=== PATIENT | female | born 1940 | race Caucasian/White ===

== ENCOUNTER 2016-07-05 06:21 | Emergency (ER) | payer MEDICARE, OTHER ==
[2008-04-25 22:14] VITALS: BP 112/69
[~2016-07-05] VITALS: Ht 157.5 cm; Wt 59.1 kg
[~2016-07-05 06:21] MED LIST: ALPRAZOLAM1 MG PO; ARIMIDEX; NORCO PO; REGLAN 10MG10 MG/TAB PO; XANAX1 MG PO
[2016-07-05 06:24] VITALS: TEMP 96.8
[2016-07-05] MEDS ORDERED: INDERAL 20MG20 MG PO (06:35)
[2016-07-05] MEDS ORDERED: ULTRAM 50MG TAB50 MG PO (06:38)
[2016-07-05 07:41] VITALS: BP 142/78; PULSE 82
== END 2016-07-05 07:48 | disposition home or self-care (01) ==
LOC: COL.ER 06:21
DX: J06.9 Acute upper respiratory infection, unspecified (principal)
CPT/HCPCS: J1885

== ENCOUNTER → 2017-05-16 | Outpatient (CLI) | payer MEDICARE, OTHER ==
[~2017-05-16] MED LIST changes: +INDERAL 20MG20 MG PO; +ULTRAM 50MG TAB50 MG PO
== END ==
LOC: COL.VAS 08:30
DX: I65.23 Occlusion and stenosis of bilateral carotid arteries (principal)

== ENCOUNTER → 2017-05-23 | Outpatient (CLI) | payer MEDICARE, OTHER | LOC: COL.RAD 07:52 | DX: I65.21 Occlusion and stenosis of right carotid artery (principal) | CPT/HCPCS: Q9967 ==

== ENCOUNTER 2017-06-20 13:01 | Outpatient (RCR) | payer MEDICARE, OTHER | END 2017-09-18 08:03 | disposition home or self-care (01) | LOC: WSPT 13:01 | DX: I97.2 Postmastectomy lymphedema syndrome (principal); M19.049 Primary osteoarthritis, unspecified hand; Z90.13 Acquired absence of bilateral breasts and nipples; Z85.3 Personal history of malignant neoplasm of breast | CPT/HCPCS: G8987-GP; G8988-GP; G8989-GP ==

== ENCOUNTER → 2018-01-24 | Outpatient (CLI) | payer MEDICARE, OTHER ==
[2008-04-25 22:14] VITALS: BP 112/69
[~2018-01-24] VITALS: Ht 157.5 cm; Wt 60.9 kg
[2018-01-24] VITALS (13 sets, daily range): BP systolic 142–186; BP diastolic 71–94; PULSE 51–68
[~2018-01-24] MED LIST changes: +ATIVAN2 MG PO; +LEXAPRO20 MG PO; +ROXICODONE 55 MG/TAB PO; +TYLENOL 325MG325 MG PO
[2018-01-24 12:26] LABS: INR 0.9 (0.8-3.0)
== END ==
LOC: COL.RAD 11:48
PROVIDERS: Radiology Diagnostic Radiology
DX: K76.89 Other specified diseases of liver (principal)
CPT/HCPCS: J2250; J3010

== ENCOUNTER 2018-02-07 05:49 | Day surgery (SDC) | payer MEDICARE, OTHER ==
[2008-04-25 22:14] VITALS: BP 112/69
[~2018-02-07] VITALS: Ht 157.5 cm; Wt 61.9 kg
[2018-02-07 06:13] VITALS: BP 148/67; PULSE 47; TEMP 97.4
[2018-02-07] MEDS ORDERED: ROXICODONE 55 MG/TAB PO ×2 (06:26→08:38)
[2018-02-07] MEDS ORDERED: MOTRIN 600600 MG/TAB PO ×3 (08:34→08:38)
[2018-02-07 08:35] VITALS: BP 158/71; PULSE 57; TEMP 97.5
[2018-02-07] MEDS ORDERED: NORCO 325 MG-51 TAB PO (08:35)
[2018-02-07 08:50] VITALS: BP 124/67; PULSE 49
[2018-02-07 09:05] VITALS: BP 118/57; PULSE 51
== END 2018-02-07 09:56 | disposition home or self-care (01) ==
LOC: SDCO 05:49
DX: C50.919 Malignant neoplasm of unspecified site of unspecified female breast (principal); C78.7 Secondary malignant neoplasm of liver and intrahepatic bile duct; I10 Essential (primary) hypertension; M19.90 Unspecified osteoarthritis, unspecified site; Z90.49 Acquired absence of other specified parts of digestive tract; Z90.13 Acquired absence of bilateral breasts and nipples; Z88.1 Allergy status to other antibiotic agents
CPT/HCPCS: C1788; J0690; J1644; J2250; J2405; J2704; J3010; J7120

== ENCOUNTER 2018-03-02 09:24 | Emergency (ER) | payer MEDICARE, OTHER ==
[2008-04-25 22:14] VITALS: BP 112/69
[~2018-03-02] VITALS: Ht 157.5 cm; Wt 61.8 kg
[~2018-03-02 09:24] MED LIST changes: +MOTRIN 600600 MG/TAB PO; +NORCO 325 MG-51 TAB PO
[2018-03-02 09:28] VITALS: TEMP 98.4
[2018-03-02] MEDS ORDERED: ADVIL200 MG PO (09:54)
[2018-03-02 10:33] LABS: HEMOGLOBIN 11.6 g/dl (12.5-16.0); MEAN CELL VOLUME 90 fl (80.0-100.0); MEAN CORPUSCULAR HEMOGLOBIN 29 pg (27.0-31.0); MEAN CORPUSCULAR HGB CONC 33 g/dl (33.0-37.0); MEAN PLATELET VOLUME 10.4 fl (7.4-10.4); PLATELET COUNT 131 K/mm3 (130-400); RED BLOOD COUNT 3.95 M/mm3 (4.10-5.30); REDCELL DISTRIBUTION WIDTH-CV 13.2 % (11.5-14.5)
[2018-03-02 10:37] LABS: HEMATOCRIT 35.4 % (37.0-47.0)
[2018-03-02 10:47] LABS: BILIRUBIN,TOTAL 0.5 mg/dL (0.0-1.0); C-REACTIVE PROTEIN 8.5 mg/dL (0.0-0.9); CALCIUM 9.8 mg/dL (8.4-10.2); CREATININE, serum 0.59 mg/dL (0.52-1.25); POTASSIUM 3.7 mmol/L (3.4-5.0)
[2018-03-02 11:28] LABS: BAND 4 % (0-10); HYPOCHROMIA 1+; LYMPHOCYTE 10 % (20.0-51.0); NEUTROPHILS 86 % (42.0-75.2); PLATELET ESTIMATE DECREASED (NORMAL)
[2018-03-02] MEDS ORDERED: BACTRIM DS 8001 TAB PO ×3 (12:52→12:58)
[2018-03-02] MEDS ORDERED: CEPHALEXIN500 M1 PO ×3 (12:52→12:58)
[2018-03-02 12:54] VITALS: BP 127/85; PULSE 102
== END 2018-03-02 13:05 | disposition home or self-care (01) ==
LOC: COL.ER 09:24
PROVIDERS: Nurse Practitioner
DX: L03.114 Cellulitis of left upper limb (principal); I89.0 Lymphedema, not elsewhere classified; Z85.3 Personal history of malignant neoplasm of breast; Z90.89 Acquired absence of other organs; Z88.1 Allergy status to other antibiotic agents

== ENCOUNTER 2018-05-01 09:45 | Outpatient (RCR) | payer MEDICARE, OTHER ==
[~2018-05-01 09:45] MED LIST changes: +ADVIL200 MG PO; +BACTRIM DS 8001 TAB PO; +CEPHALEXIN500 M1 PO
== END 2018-05-12 | disposition home or self-care (01) ==
LOC: MKS.ESL.PT
DX: I89.0 Lymphedema, not elsewhere classified (principal); Z85.3 Personal history of malignant neoplasm of breast; Z90.13 Acquired absence of bilateral breasts and nipples; Z78.0 Asymptomatic menopausal state; Z92.21 Personal history of antineoplastic chemotherapy; Z79.891 Long term (current) use of opiate analgesic; Z79.899 Other long term (current) drug therapy
CPT/HCPCS: G8990-GP; G8991-GP

== ENCOUNTER 2018-07-29 16:00 | Outpatient (RCR) | payer MEDICARE, OTHER | END 2018-08-13 | disposition home or self-care (01) | LOC: MKS.ESL.PT | DX: I97.2 Postmastectomy lymphedema syndrome (principal); C78.7 Secondary malignant neoplasm of liver and intrahepatic bile duct; Z90.13 Acquired absence of bilateral breasts and nipples; Z92.3 Personal history of irradiation; Z92.21 Personal history of antineoplastic chemotherapy ==

== ENCOUNTER 2018-11-20 15:00 | Outpatient (RCR) | payer MEDICARE, OTHER | END 2018-11-28 | LOC: MKS.ESL.PT | DX: M25.562 Pain in left knee (principal) ==

== ENCOUNTER 2018-12-11 14:42 | Outpatient (RCR) | payer MEDICARE, OTHER | END 2019-03-11 | LOC: MKS.ESL.PT | DX: I89.0 Lymphedema, not elsewhere classified (principal) ==

== ENCOUNTER 2019-03-14 15:45 | Outpatient (RCR) | payer MEDICARE, OTHER | END 2019-06-10 | disposition still patient (30) | LOC: MKS.ESL.PT | DX: C50.412 Malignant neoplasm of upper-outer quadrant of left female breast (principal); I89.0 Lymphedema, not elsewhere classified ==

== ENCOUNTER → 2019-03-28 | Outpatient (CLI) | payer MEDICARE, OTHER | LOC: COL.RAD 08:51 | DX: C78.7 Secondary malignant neoplasm of liver and intrahepatic bile duct (principal); C50.412 Malignant neoplasm of upper-outer quadrant of left female breast; M89.9 Disorder of bone, unspecified; K83.8 Other specified diseases of biliary tract | CPT/HCPCS: Q9967 ==

== ENCOUNTER 2019-07-30 08:46 | Outpatient (RCR) | payer MEDICARE, OTHER ==
[2019-08-30] MEDS ORDERED: OXY IR5 MG PO (15:38)
[2019-08-30] MEDS ORDERED: PIQRAY1 EACH PO (19:42)
[2019-08-30] MEDS ORDERED: VIIBRYD20 MG PO (19:43)
[2019-08-31] MEDS ORDERED: ROXICODONE15 MG PO (06:08)
[2019-09-04] MEDS ORDERED: LIPITOR 40MG TA40 MG PO (10:52)
[2019-09-04] MEDS ORDERED: NORVASC 10MG10 MG PO (10:52)
[2019-09-04] MEDS ORDERED: PRINIVIL40 MG PO (10:52)
[2019-09-04] MEDS ORDERED: LOPRESSOR 225 MG/TAB PO (10:52)
[2019-09-04] MEDS ORDERED: ZOLOFT 25MG25 MG PO (10:53)
== END 2019-10-28 | disposition home or self-care (01) ==
LOC: MKS.ESL.PT
DX: M25.511 Pain in right shoulder (principal); M25.512 Pain in left shoulder

== ENCOUNTER 2019-08-30 13:26 | Inpatient (IN) | payer MEDICARE, OTHER ==
[2019-08-30] VITALS (205 sets, daily range): BP systolic 137; BP diastolic 78; PULSE 87; TEMP 99.3; O2SAT 71–100
[~2019-08-30] VITALS: Ht 157.5 cm; Wt 59.7 kg
[2019-08-30 13:47] LABS: BASO % 0.2 % (0.0-2.0); GRAN # 12.4 (1.4-6.5); GRAN % 82.6 % (42.2-75.2); HEMATOCRIT 47.9 % (37.0-47.0); HEMOGLOBIN 15.8 g/dl (12.5-16.0); LYMPH # 1.5 (1.2-3.4); LYMPH % 10.1 % (20.0-51.0); MEAN CELL VOLUME 88 fl (80.0-100.0); MEAN CORPUSCULAR HEMOGLOBIN 29 pg (27.0-31.0); MEAN CORPUSCULAR HGB CONC 33 g/dl (33.0-37.0); MEAN PLATELET VOLUME 9.4 fl (7.4-10.4); MONO % 6.7 % (1.7-9.3); PLATELET COUNT 265 K/mm3 (130-400); RED BLOOD COUNT 5.45 M/mm3 (4.10-5.30); REDCELL DISTRIBUTION WIDTH-CV 13.8 % (11.5-14.5)
[2019-08-30 13:57] LABS: ALBUMIN 5.1 gm/dL (3.5-5.0); BILIRUBIN,TOTAL 1.3 mg/dL (0.0-1.0); C-REACTIVE PROTEIN 0.7 mg/dL (0.0-0.9); CALCIUM 9.9 mg/dL (8.4-10.2); CREATININE, serum 1.07 (0.52-1.25); POTASSIUM 3.3 mmol/L (3.4-5.0); TOTAL PROTEIN 8.7 gm/dL (6.4-8.2)
[2019-08-30 14:25] LABS: COLLECTION METHOD CLEAN CATCH
[2019-08-30 14:34] LABS: MUCOUS Present /lpf; PH 6 (5-8); SQUAMOUS EPITHELIAL None Seen /hpf; URINE APPEARANCE Clear; URINE BACTERIA None Seen /hpf; URINE BILIRUBIN Negative (NEGATIVE); URINE BLOOD 1+ (NEGATIVE); URINE COLOR Yellow; URINE GLUCOSE 3+ (NEGATIVE); URINE KETONE Trace (NEGATIVE); URINE LEUKOCYTE ESTERASE Negative (NEGATIVE); URINE NITRATE Negative (NEGATIVE); URINE PROTEIN(semi-quant) 2+ (NEGATIVE); URINE UROBILINOGEN Negative (NEGATIVE)
[2019-08-30 14:46] LABS: TRICYCLIC ANTIDEPRESS URINE NEGATIVE
[2019-08-30] MEDS ORDERED: OXY IR5 MG PO (15:38)
[2019-08-30] MEDS ORDERED: PIQRAY1 EACH PO (19:42)
[2019-08-30] MEDS ORDERED: VIIBRYD20 MG PO (19:43)
--- NOTE | 2019-08-30 20:00 | NUR ---
Patient arrived via stretcher; patient alert and talking to staff, however speech is mostly non-sensical. Difficult to follow patient's train of thought. Patient will ask quesions which are not appropriate for the situation and go off on tangents. However, patient is able to follow most basic commands. Able to correctly tell this nurse the date and current location. Neuro checks within normal limits.
[2019-08-31] VITALS (783 sets, daily range): BP systolic 111–175; BP diastolic 75–96; PULSE 89–114; TEMP 97.6–99.2; O2SAT 60–100
--- NOTE | 2019-08-31 03:13 | NUR ---
Patient continues to be pleasantly confused. Has attempted to get up from bed multiple times. When asked why she is getting up patient unable to give a reason. Able to follow basic commands and can be redirected easily. Speech is still mostly jumbled. Able to state yes or no answers clearly but longer phrases are mostly unintelligible. Will continue to monitor.
--- NOTE | 2019-08-31 05:12 | NUR ---
Patient had episode of emesis. Assisted head of bed to 45 degrees. Zofran administere; reported stomach feeling "better" after medication. Will continue to monitor.
[2019-08-31] MEDS ORDERED: ROXICODONE15 MG PO (06:08)
[2019-08-31 06:20] LABS: HEMATOCRIT 43.4 % (37.0-47.0); HEMOGLOBIN 14.5 g/dl (12.5-16.0); MEAN CELL VOLUME 87 fl (80.0-100.0); MEAN CORPUSCULAR HEMOGLOBIN 29 pg (27.0-31.0); MEAN CORPUSCULAR HGB CONC 33 g/dl (33.0-37.0); MEAN PLATELET VOLUME 9.5 fl (7.4-10.4); PLATELET COUNT 237 K/mm3 (130-400); RED BLOOD COUNT 4.97 M/mm3 (4.10-5.30)
[2019-08-31 06:35] LABS: ALBUMIN 4.4 gm/dL (3.5-5.0); BILIRUBIN,TOTAL 1.4 mg/dL (0.0-1.0); CALCIUM 9.3 mg/dL (8.4-10.2); CHOLESTEROL RISK RATIO 3.6; CREATININE, serum 0.92 (0.52-1.25); POTASSIUM 3.5 mmol/L (3.4-5.0); TOTAL PROTEIN 7.3 gm/dL (6.4-8.2)
--- NOTE | 2019-08-31 07:15 | NUR ---
Bedside shift report received from Ana SETH. PT in bed resting, awake and listening to us during report but unable to comprehend any of the words she is saying, aksed orientation questions and pt unable to answer any of them coherently, speech is garbled. Bed alarm on, will continue to monitor.
[2019-08-31 07:31] LABS: BAND 3 % (0-10); LYMPHOCYTE 12 % (20.0-51.0); NEUTROPHILS 76 % (42.0-75.2); PLATELET ESTIMATE NORMAL (NORMAL)
--- NOTE | 2019-08-31 08:16 | NUR ---
Assessment hcarted by student nurse. Pt has LUE edema at +2, LUE is also warm. Pt has set off bed alarm twice already today, able to redirect back to bed easily but pt is very fast and moves often. Resting in bed now in chair position with alarm on. IVF to R a/c at 75 ml/hr. Cardene gtt to R Portacath at 25 ml/hr. Will continue to monitor.
--- NOTE | 2019-08-31 10:07 | NUR ---
Dr. Olivares here to see pt at this time, wants to trial off cardene gtt to see how patient does. Son Joaquin, called from [place] and gave update on patient status. Pt remains in bed, alarms on, will continue to monitor.
--- NOTE | 2019-08-31 14:43 | NUR ---
pt arrived to unit around 1430. no skin issues noted. pt able to follow all instructions but not always able to make needs known. clearly answers yes/no questions appropriately but loses train of thought/ mumbles when asked open ended questions. PERRLA. 4+ PITTING EDEMA NOTED TO LT ARM. denies pain but winces occasionally. SCDs applied. head librarian to swollen arm 3/[address] hand 4/5. face flushed.
--- NOTE | 2019-08-31 14:54 | NUR ---
TEMP 99.2. WARM BLANKETS CURRENTLY ON. MILD ANXIETY WITH FACIAL FLUSHING AND ALMOST-TEARS NOTED
--- NOTE | 2019-08-31 15:14 | NUR ---
pt transfered to medical floor via wheelchair with all of pt belongings and chemo cart. Report given to medical nurse who is resuming care. PRN nausea and anxiety medication given prior to transport, medical nurse was made aware. pt put into bed with alarms on. medical nurse to resume care.
--- NOTE | 2019-08-31 18:07 | NUR ---
PT REPORTED FEELING "NOT GOOD" IN HER STOMACH. HAD NOT EATEN ANY LUNCH. WAS REFUSING DINNER. BG >200 TO 160S WITHOUT INSULIN GIVEN. PRN ZOFRAN ADMIN. PT WAS ABLE TO EAT BANANA. ADAMANT TO TRY MORE FOOD BUT TRAY REMAINING AT BEDSIDE
--- NOTE | 2019-08-31 20:15 | NUR ---
Pt. laying in bed at this time. Pt. is confused, assessment complete. INT to rt. ac patent. Port to rt. chest patent. If asked the pt. will answer "yes/no" questions appropriately. But other blanc has word salad. Pt. does not appear to be in pain. Call light within reach, bed alarm on.
--- NOTE | 2019-08-31 22:33 | NUR ---
Pt.'s heart rate elevated per tele. SARAH Salazar notified. EKG ordered, showed sinus tach. Will continue to monitor.
[2019-09-01 03:36] VITALS: BP 154/96; PULSE 113; TEMP 99.4
[2019-09-01 07:19] LABS: HEMOGLOBIN 14.1 g/dl (12.5-16.0); MEAN CELL VOLUME 91 fl (80.0-100.0); MEAN CORPUSCULAR HEMOGLOBIN 30 pg (27.0-31.0); MEAN CORPUSCULAR HGB CONC 33 g/dl (33.0-37.0); MEAN PLATELET VOLUME 10.1 fl (7.4-10.4); PLATELET COUNT 243 K/mm3 (130-400); RED BLOOD COUNT 4.75 M/mm3 (4.10-5.30); REDCELL DISTRIBUTION WIDTH-CV 14.3 % (11.5-14.5)
[2019-09-01 07:43] LABS: CALCIUM 9.2 mg/dL (8.4-10.2); CREATININE, serum 1.11 (0.52-1.25); MAGNESIUM 2.5 mg/dL (1.6-2.3); POTASSIUM 3.5 mmol/L (3.4-5.0)
--- NOTE | 2019-09-01 08:36 | NUR ---
Spoke with Dr Alva's office this morning. PT recieved faslodex as n infusion on August 07. This drug has a half life of 40 days and is excreted in the stool. Double gloves should be used when handling stool. Gown and gloves for incontinence cleanup. Piqray is a antineoplastic that is not on the [facility] list and should be cleared from her system by now. Dr Alva's office reports that pt has recieved no other drugs from them nore recently and they do not believe that she is being seen at [facility].
--- NOTE | 2019-09-01 09:00 | NUR ---
Received call from MRI to take patient down for testing. Did inform patient of this and she agreed. During conversation, patient would speak in Azeri and in Ecuadorean mixed during conversation, has to be reminded to speak Ecuadorean as staff can not understand her. She is aware that this has been happening and states that shes unsure why this is happening. There was a lumbar puncture ordered, did call son for consent and he declined for testing as he feels there is no indication for the test to be done. Provider has been notified of this.
[2019-09-01 09:23] LABS: BAND 3 % (0-10); LYMPHOCYTE 17 % (20.0-51.0); NEUTROPHILS 71 % (42.0-75.2)
[2019-09-01 09:24] LABS: PLATELET ESTIMATE NORMAL (NORMAL)
--- NOTE | 2019-09-01 11:41 | NUR ---
Oil Fire Specialist contacted patient's son Nadir (ph#[phone]) as patient has been disoriented and not able to answer questions. Per Nadir, patient lives alone in [place] and sees Dr. Rogers for primary care. Patient also sees Dr. Alva, Oncologist and a Psychologist named Shila at ph#[phone]. Patient obtains medications from [facility] pharmacy. Nadir advised patient was "100%" independent with ADLS prior to being admitted to the hospital. Nadir reports he speaks with patient about three times a day and for the last couple of years she has been lucid. Nadir reports patient has been driving and shopping independently. Nadir states patient will likely want to return home upon discharge. Patient does not have DPOA-HC in EMR and Nadir confirms patient has not had this completed. SW to continue to follow to ensure safe discharge.
[2019-09-01 16:46] VITALS: BP 158/82; PULSE 95; TEMP 98.8
--- NOTE | 2019-09-01 18:45 | NUR ---
Pt report received from Rekha SETH at bedside. Pt is A&O but slips in out out of speaking citizen of [place] and has to be reminded to speak iranian. Pt has call light at her side and is compliant with using it prior to geting up out of bed per report. Pt is able to make her wants/needs known and presents with no s/s of distress noted. Pt requests beverage which this engineering technical writer provided and places on her bedside table within reach. Pt port a cath remains coverwed with clear dressing that is clean dry and intact. Will continue to monitor.
--- NOTE | 2019-09-01 18:54 | NUR ---
Patient has become more mentally clear throughout the day. She feels less foggy. All afternoon patient has spoke clear czech without having any Maltese into the conversation. All conversations have been appropriate. She is alert and oriented x4. Dr. Payton spoke with Nadir, patients son who has now decided that he would like for the patient to have the LP done. She does recall Dr. Ladd talking about the LP earlier in the morning and she stated this was not something she wanted to do. Dr. Payton did request that I still received verbal consent from the son just in case she were to have altered mental status again. This was complete but son understood that she would be able to refuse if she chose to do so. Did administer some prn acetaminophen per patients request for some right sided pain. Call light and personal items are within reach.
[2019-09-01 20:41] VITALS: BP 194/80; PULSE 92; TEMP 99.5
--- NOTE | 2019-09-01 23:32 | NUR ---
Pt complains of inability to sleep and restlessness. Pt has PRN Ativan PO 0.5mg - 1mg. Pt educated on order for ativan and that this may help settle her down. Pt requests PRN dose of 1 tablet (o.5 mg) which was given per JUL. Will continue to monitor.
[2019-09-01 23:56] VITALS: BP 180/93; PULSE 88; TEMP 98.9
[2019-09-02] VITALS (8 sets, daily range): BP systolic 147–196; BP diastolic 67–104; PULSE 92–99; TEMP 98–99.2
--- NOTE | 2019-09-02 00:30 | NUR ---
This rewriter notes on VS verification that Pt has elevated BP. This rewriter re-assessed Pt and noted BP of 181/91 supine. Pt denies chest pain, pressure, palpitations, changes to respiratory status or palpitations. Will continue to monitor.
--- NOTE | 2019-09-02 01:53 | NUR ---
Pt reported to this telegraphic typewriter operator chief at about 0130 that she was having difficulty obtaining a breath and "felt like (she) was going to ". This telegraphic typewriter operator chief obtained a set of VS with BP of 147/67 Pulse of 94 SpO2 of 96% on RA Temp of 98.8 and Respirations of 22. This telegraphic typewriter operator chief called Sharif SETH in Telemetry who reported that Pt is and has been in NSR with no arrthymia or other issues noted. Marie BEAUCHAMP notified who came and assessed Pt and provided new orders for labs, xrays, UA, and designated a new allergy of Hydralazine. Lab and X-ray notified of new orders. Pt is A&Ox4 and continues to slip in and out of speaking Kazakh but returns to Thai when told that this telegraphic typewriter operator chief cannot understand Kazakh. Pt currently reported that she is very gassy and feels like that may be part of the issue. During Assessment Pt reported tenderness to her left upper abdominal quadrant. Call light within reach. Will continue to monitor. COMPLETIONS ENGINEER's notified of new orders for UA with Providine, toilet hat and collection cup placed in room.
--- NOTE | 2019-09-02 02:41 | NUR ---
Pt sitting in bed with HOB elevated to about 60 degrees. Pt reports that she is feeling better ant this time. VS wnl for client with no s/s of distress noted. Call light is within reach. Will continue to monitor.
[2019-09-02 03:35] LABS: HEMATOCRIT 43.7 % (37.0-47.0); HEMOGLOBIN 14.5 g/dl (12.5-16.0); MEAN CELL VOLUME 90 fl (80.0-100.0); MEAN CORPUSCULAR HEMOGLOBIN 30 pg (27.0-31.0); MEAN CORPUSCULAR HGB CONC 33 g/dl (33.0-37.0); PLATELET COUNT 232 K/mm3 (130-400); RED BLOOD COUNT 4.86 M/mm3 (4.10-5.30)
[2019-09-02 03:46] LABS: CALCIUM 9.1 mg/dL (8.4-10.2); MAGNESIUM 2.5 mg/dL (1.6-2.3); POTASSIUM 3.3 mmol/L (3.4-5.0)
[2019-09-02 03:47] LABS: EOSINOPHIL 1 % (0-4); LYMPHOCYTE 8 % (20.0-51.0); NEUTROPHILS 78 % (42.0-75.2); PLATELET ESTIMATE NORMAL (NORMAL)
--- NOTE | 2019-09-02 04:13 | NUR ---
When this feature writer provided Pt her first dose of effervescent PO potassium Pt stated that she felt that we were going to be euthanizing her and asked when her last shot was going to be. Pt education on POC based upon this feature writer's chart review that the POC was that once she was stable and recovered from her current health issue that she was going to be going to rehab for therapy to get her strength back so she could then return home and continue living her life as she was prior to this hospitalization. Pt expressed reassurance and is currently resting in bed with no complaints or issues. Will continue to monitor.
--- NOTE | 2019-09-02 05:48 | NUR ---
Pt has remained awake and in bed since first dose of effervescent K+ was provided at 0400. Pt has had no further complaints of trouble breathing and has been quietly resting in bed without s/s of distress noted. Call light remains within reach. Will continue to monitor.
[2019-09-02 06:41] LABS: COLLECTION METHOD CLEAN CATCH
[2019-09-02 06:59] LABS: MUCOUS Present /lpf; PH 5 (5-8); SQUAMOUS EPITHELIAL 0-2 /hpf; URINE APPEARANCE Cloudy; URINE BACTERIA Moderate /hpf; URINE BILIRUBIN Negative (NEGATIVE); URINE BLOOD 1+ (NEGATIVE); URINE COLOR Yellow; URINE GLUCOSE 2+ (NEGATIVE); URINE KETONE Trace (NEGATIVE); URINE LEUKOCYTE ESTERASE 3+ (NEGATIVE); URINE NITRATE Negative (NEGATIVE); URINE PROTEIN(semi-quant) 1+ (NEGATIVE); URINE UROBILINOGEN Negative (NEGATIVE)
--- NOTE | 2019-09-02 07:01 | NUR ---
Pt report given to Ellie SETH
--- NOTE | 2019-09-02 08:48 | NUR ---
Pt laying in bed upon assessment, she is A/O x4, but also unable to assess if has confusion as she will often times start speaking in Mongolian and unable to assess relevance. Pt does report some diarrhea this am, as well as nausea. Ate a banana for breakfast. She reports pain to RUQ. L arm restrictions in place. Pt has no other needs at this time. Call light within reach. Bed alarm in place.
--- NOTE | 2019-09-02 14:17 | NUR ---
Accounting Bookkeeper followed up with patient today as she is more oriented and able to answer questions. SW followed up on post acute rehab placement options. Patient agreeable to have referrals sent to [facility], [facility], [facility], and [facility]. SW contacted each facility and faxed referrals. MARY spoke with Malissa at [facility] who advised they cannot accept referral. SW provided this update to patient. SW spoke with patient's son, Nadir to provide update on referrals. SW advised Nadir that if patient discharges to [facility], patient would need someone to transport her. Nadir reports either a neighbor of friend should be able to take her. SW provided update to Hospitalist. SW to continue to follow.
--- NOTE | 2019-09-02 18:39 | NUR ---
Pt had uneventful day. She rested well, remained A/O x4, occasionally starts speaking Chadian. Pt asking why people are talking about her, but denies hallucinations, states she does not see people in her room. Occasional SEQUEIRA, PRN Tylenol administered. Pt resting in bed at this time. Call light within reach, bed alarm in place.
--- NOTE | 2019-09-02 20:00 | NUR ---
At time of assessment, patient is awake in bed talking to her son, Nadir. She seems a little anxious and inquires about going home tomorrow. Assessment is complete. She complains of pain in left arm and says lymphedema has gotten worse. Tylenol administered for pain. Will continue to monitor.
--- NOTE | 2019-09-03 00:07 | NUR ---
Patient's BP at 2341 is 194/104. CAROLIN Salazar notified. Lopressor 5mg/5ml administered once. BP retaken 5 minutes later and it is 208/108. Marie is notified again and orders another 5mg Lopressor now.
[2019-09-03 04:21] VITALS: BP 152/83; PULSE 72; TEMP 98.1
--- NOTE | 2019-09-03 05:54 | NUR ---
Patient had very high BP's tonight. CAROLIN Salazar was notified of this and Lopressor 5 mg x 4, Lopressor 25 mg PO x 1, Norvasc 5 mg x 1, and clonidine 0.1 mg x 1 administered per doctor's orders before blood pressure finally trended down to 150's/80's. Patient remained asymptomatic throughout this event and has been sleeping peacefully afterwards. Will continue to monitor.
[2019-09-03 06:52] LABS: BASO % 0.1 % (0.0-2.0); EOS % 0.1 % (0-4.0); GRAN # 11.6 (1.4-6.5); HEMATOCRIT 42.2 % (37.0-47.0); HEMOGLOBIN 13.8 g/dl (12.5-16.0); LYMPH # 2.1 (1.2-3.4); LYMPH % 13.8 % (20.0-51.0); MEAN CELL VOLUME 89 fl (80.0-100.0); MEAN CORPUSCULAR HEMOGLOBIN 29 pg (27.0-31.0); MEAN CORPUSCULAR HGB CONC 33 g/dl (33.0-37.0); MEAN PLATELET VOLUME 10.3 fl (7.4-10.4); MONO # 1.4 (0.1-0.6); MONO % 9.1 % (1.7-9.3); PLATELET COUNT 239 K/mm3 (130-400); RED BLOOD COUNT 4.73 M/mm3 (4.10-5.30); REDCELL DISTRIBUTION WIDTH-CV 13.7 % (11.5-14.5)
[2019-09-03 07:03] LABS: CALCIUM 9.1 mg/dL (8.4-10.2); CREATININE, serum 0.73 (0.52-1.25); POTASSIUM 3.4 mmol/L (3.4-5.0)
[2019-09-03 07:16] VITALS: BP 141/85; PULSE 76; TEMP 97.6
--- NOTE | 2019-09-03 09:35 | NUR ---
Patient is awake and alert in bed, did eat a small amount of breakfast, she states that her appetite is slowly returing. She asked if the doctors keep people over three days because she is ready to go home. She does verbalize that she is upset with her sons as she feels they are not concerned about her. The son did call and reported to me that his mom is extremely agitated. I had spoken with the patient right before the call from the son and she was not agitated at that time. I did speak with her after speaking with the son and she was not agitated at that time, just stating she is eager to return home, there was no indication of leaving without seeing the doctor or leaving before the doctor states it is ok for discharge. Will check in and speak with patient again during neuro checks. Call light and personal items are within reach.
--- NOTE | 2019-09-03 11:07 | NUR ---
First visit from the country printer. No needs right now.
[2019-09-03 11:46] VITALS: BP 108/76; PULSE 75; TEMP 98.4
--- NOTE | 2019-09-03 16:24 | NUR ---
Lodging Manager spoke with patient to follow up on discharge plan. Patient reports she wants to now go home with Home Health. MARY provided this update to Hospitalist who is in agreeance. Patient selected [facility]. MARY faxed referral and will follow up. MARY contacted patient's son and left a message.
[2019-09-03 16:38] VITALS: BP 136/80; PULSE 89; TEMP 97.9
--- NOTE | 2019-09-03 16:57 | NUR ---
Patient notified staff of concern regarding swelling in the left arm. She typically has swelling due to lymphadema but she states it is worse than usual. Hand does appear to have more swelling than this morning. She does wear a compression sleeve while at home but does not have one with her. She did state that beatrice bandages are ineffective. Was provided with pillows to elevate, she was comfortable with that. Did offer APAP as she was having some aching to that arm.
[2019-09-03 19:10] VITALS: BP 138/88; PULSE 94; TEMP 97.6
--- NOTE | 2019-09-03 20:30 | NUR ---
Initial shift assessment done- denies pain,, alert/oriented at this time, steady on feet- VSS, left arm edema{elevated on pillow},, hopes to go home tomorrow
[2019-09-03 23:01] VITALS: BP 151/86; PULSE 82; TEMP 98.1
--- NOTE | 2019-09-03 23:21 | NUR ---
States she cant sleep and she feels anxious- will give Ativan as ordered, VSChana, B/P 151/86
[2019-09-04 03:15] VITALS: BP 133/90; PULSE 92; TEMP 98.4
[2019-09-04 07:18] VITALS: BP 148/83; PULSE 93; TEMP 98.4
--- NOTE | 2019-09-04 08:00 | NUR ---
Patient is awake and alert in bed. Is asking about when she can go home, I did tell her the provider had to round first but assured her that yesterday he stated she could go home. Did assess her left arm, she states she feels it has improved and had does appear smaller. She states she will take care of her compression sleeve when she gets home. She is denying pain, does state she is a little tired as it is "hard to sleep while in the hospital." No other needs verbalized. Call light and personal items are within reach.
[2019-09-04] MEDS ORDERED: PRINIVIL40 MG PO (10:52)
[2019-09-04] MEDS ORDERED: LOPRESSOR 225 MG/TAB PO (10:52)
[2019-09-04] MEDS ORDERED: LIPITOR 40MG TA40 MG PO (10:52)
[2019-09-04] MEDS ORDERED: NORVASC 10MG10 MG PO (10:52)
[2019-09-04] MEDS ORDERED: ZOLOFT 25MG25 MG PO (10:53)
[2019-09-04 11:51] VITALS: BP 130/79; PULSE 81; TEMP 97.7
--- NOTE | 2019-09-04 12:09 | NUR ---
Wireless Sales Consultant attended clinical rounds with the team and patient to discharge home today with services. MARY contacted Mariah at [facility] who advised they can accept referral and see patient tomorrow morning. MARY advised orders would be for PT/OT/ST/Nursing. MARY faxed discharge orders and COVID 19 screen to [facility]. MARY spoke with patient who is in agreeance with discharge plan and reports she has a ride home today from her friend. MARY read IM form aloud to patient who verbalized understanding and gave SW permission to sign on her behalf. MARY placed form in patient's chart. MARY called patient's son and left him a message. No additional needs at this time.
--- NOTE | 2019-09-04 15:50 | NUR ---
Patient discharged home at 1300. Friend came to get patient and she left via private vehicle. Personal belongings are with patient. Escorted out with staff via wheelchair.
--- NOTE | 2019-09-04 17:28 | NUR ---
PORT DEACCESSED PRIOR TO DISCHARGE PER PROTOCOL. HEMOSTASIS ACHEIVED, DRESSING PLACED.
--- NOTE | 2019-09-05 15:19 | NUR ---
Binder Sorter spoke with ROLO Coffey who advised patient called and said she needed help at home. MARY contacted patient and advised that [facility] was set up for her. Patient states she told them not to come out but has changed her mind. MARY contacted Mariah at [facility] who reports they attempted to set up intake with patient who declined. Mariah states she will call patient back to set up time to complete intake.
== END 2019-09-04 13:00 | disposition home health service (06) | DRG 917 ==
LOC: COL.ER 13:26 → ICU 15:10 → MEDICAL 08-31 14:20
PROVIDERS: Family Medicine; Nurse Practitioner Family; Physician Assistant; ADMIT Hospitalist
DX: T40.2X1A Poisoning by other opioids, accidental (unintentional), initial encounter (principal); G92 Toxic encephalopathy; F33.1 Major depressive disorder, recurrent, moderate; I67.4 Hypertensive encephalopathy; I16.1 Hypertensive emergency; N39.0 Urinary tract infection, site not specified; T42.4X1A Poisoning by benzodiazepines, accidental (unintentional), initial encounter; F41.0 Panic disorder [episodic paroxysmal anxiety]; R41.3 Other amnesia; E87.6 Hypokalemia; F41.1 Generalized anxiety disorder; R00.0 Tachycardia, unspecified; E78.5 Hyperlipidemia, unspecified; B96.20 Unspecified Escherichia coli [E. coli] as the cause of diseases classified elsewhere; E03.9 Hypothyroidism, unspecified; E11.65 Type 2 diabetes mellitus with hyperglycemia; Z85.3 Personal history of malignant neoplasm of breast; Z92.21 Personal history of antineoplastic chemotherapy; Z79.4 Long term (current) use of insulin; Z90.89 Acquired absence of other organs; Z90.49 Acquired absence of other specified parts of digestive tract
CPT/HCPCS: 99223-AI; 99232-AI; 99233-AI; 99239; A4216; A9585; G0463; J0360; J0696; J1650; J1815; J2060; J2405; J2550; J3480; J7050; J7120; Q9967

== ENCOUNTER → 2019-09-26 | Outpatient (CLI) | payer MEDICARE, OTHER ==
[~2019-09-26] MED LIST changes: +LIPITOR 40MG TA40 MG PO; +LOPRESSOR 225 MG/TAB PO; +NORVASC 10MG10 MG PO; +OXY IR5 MG PO; +PIQRAY1 EACH PO; +PRINIVIL40 MG PO; +ROXICODONE15 MG PO; +VIIBRYD20 MG PO; +ZOLOFT 25MG25 MG PO
== END ==
LOC: COL.RAD 13:22
DX: M19.011 Primary osteoarthritis, right shoulder (principal)

== ENCOUNTER → 2020-09-27 | Outpatient (CLI) | payer MEDICARE, OTHER | LOC: COL.CARD 10:35 | DX: Z51.11 Encounter for antineoplastic chemotherapy (principal); C50.412 Malignant neoplasm of upper-outer quadrant of left female breast ==

== ENCOUNTER → 2020-10-08 | Outpatient (CLI) | payer MEDICARE, OTHER | LOC: COL.CARD 06:42 | DX: C50.412 Malignant neoplasm of upper-outer quadrant of left female breast (principal) ==

== ENCOUNTER → 2020-10-20 | Outpatient (CLI) | payer MEDICARE, OTHER | LOC: COL.CARD 11:03 | DX: C50.412 Malignant neoplasm of upper-outer quadrant of left female breast (principal) ==

== ENCOUNTER → 2020-11-16 | Outpatient (CLI) | payer MEDICARE, OTHER | LOC: COL.CARD 10:55 | DX: C50.412 Malignant neoplasm of upper-outer quadrant of left female breast (principal) ==

== ENCOUNTER → 2021-04-08 | Outpatient (CLI) | payer MEDICARE, OTHER | LOC: COL.VAS 07:24 | DX: I82.90 Acute embolism and thrombosis of unspecified vein (principal); M79.602 Pain in left arm ==

== ENCOUNTER → 2022-01-27 | Outpatient (CLI) | payer MEDICARE, OTHER | LOC: COL.VAS 12:40 | DX: C50.412 Malignant neoplasm of upper-outer quadrant of left female breast (principal); I35.8 Other nonrheumatic aortic valve disorders ==